=== PATIENT | male | born 1965 | race Caucasian/White ===

== ENCOUNTER 2016-10-21 16:13 | Emergency (ER) | payer BC ==
--- NOTE | ~2016-10-21 | CR21 ---
[facility] A Service of [facility] & [facility] RADIOLOGY TEXT RESULTS PATIENT: ORTEGA PATEL LOCATION: SED : [birth year] UNIT #: [id number] AGE: [address]: Yves Singer SEX: M ORDER DR: [id number] [place] [id number] E MR#: [id number] Acc #: [id number] NAME: ORTEGA PATEL : 1965 SEX: M STUDY DATE/TIME: 10/21/2016 17:39 UNIT: SED ROOM: STUDY DESCRIPTION: CR Ankle Min 3 Views Rt Attending Physician: Yves Singer P.A.-C. Ordering Physician: Yves Singer P.A.-C. Primary Care Physician: Oneal Tiwari M.D. MEDICAL IMAGING REPORT This report is preliminary unless electronic signature is present. EXAM Right ankle 3 views HISTORY Ankle pain and redness and swelling for 2 days. No injury. FINDINGS 3 views of the right ankle demonstrate marked soft tissue swelling about the ankle. No fracture, joint space narrowing or abnormal sclerosis. Small plantar calcaneal spur. IMPRESSION Soft tissue swelling about the ankle. No fracture. Satisfactory bone alignment. Dictated by... Rosendo Roberts M.D. THIS IS AN ELECTRONICALLY VERIFIED REPORT Rosendo Roberts M.D. at 10/21/2016 11:14 PM DFL/to TD: 10/21/2016 22:20 JOB #: [id number] MEDICAL IMAGING REPORT Page 1 of 1
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
--- NOTE | ~2016-10-21 | CR127 ---
[facility]. [facility] A Service of [facility] & [facility] RADIOLOGY TEXT RESULTS PATIENT: ORTEGA PATEL LOCATION: SED : [birth year] UNIT #: [id number] AGE: [address]: Yves Singer SEX: M ORDER DR: [id number] [place] [id number] E MR#: [id number] Acc #: [id number] NAME: ORTEGA PATEL : 1965 SEX: M STUDY DATE/TIME: 10/21/2016 17:39 UNIT: SED ROOM: STUDY DESCRIPTION: CR Foot Complete Min 3 View Rt Attending Physician: Yves Singer P.A.-C. Ordering Physician: Yves Singer P.A.-C. Primary Care Physician: Oneal Tiwari M.D. MEDICAL IMAGING REPORT This report is preliminary unless electronic signature is present. EXAM Right foot, 3 views HISTORY Foot pain for 2 days. Redness and swelling. No injury. FINDINGS 3 views of the right foot demonstrate moderately severe soft tissue swelling over the dorsum of the foot and about the ankle. Bone alignment is normal. No fracture or joint space narrowing or dislocation. No bony destruction. Small plantar calcaneal spur. IMPRESSION 1. Soft tissue swelling over the dorsum of the foot and about the ankle. 2. No fracture. Satisfactory bone alignment. Dictated by... Rosendo Roberts M.D. THIS IS AN ELECTRONICALLY VERIFIED REPORT Rosendo Roberts M.D. at 10/21/2016 11:14 PM DFL/gary TD: 10/21/2016 22:32 JOB #: [id number] MEDICAL IMAGING REPORT Page 1 of 1
[~2016-10-21 16:13] MED LIST: ALTACE PO; AMBIEN PO; AZOR 5-20 MG T1 EACH PO; B/P MED; BAYER ASPIRIN325 M1 PO; FLOMAX0.4 MG PO; HYDROCODON-ACE1 EAC4 PO; LORTAB 10-5001 EACH PO; LOTREL; LOTREL 5-20 MG1 CAP PO; MEDROL PO; OXYCONTIN15 MG PO; PERCOCET10 PO; TYLOX 5-500 CA1 EACH PO; TYLOX 5/500 CAP1 CAP PO; TYLOX1 CAP 5/50 PO
[2016-10-21] MEDS ORDERED: BYSTOLIC20 MG PO (16:19)
[2016-10-21 17:11] LABS: BASOPHIL% 0.5 % (0-2.5); EOSINOPHIL# 0.1 X10e3 (0-0.7); EOSINOPHIL% 0.8 % (0.0-7.0); HEMATOCRIT 42.9 % (38.0-50.0); HEMOGLOBIN 14.7 gm/dL (13.0-16.0); LYMPHOCYTE# 0.8 X10e3 (1.0-3.5); LYMPHOCYTE% 9.4 % (17.0-45.0); MEAN CELL VOLUME 84.8 FL (83-96); MEAN CORPUSCULAR HGB CONC 34.2 g/dL (30-36); MEAN PLATELET VOLUME 9.8 FL (6.5-11.5); MONOCYTE# 0.8 X10e3 (0-1.0); MONOCYTE% 9.1 % (3.0-12.0); NEUTROPHIL# 6.6 X10e3 (1.5-7.1); NEUTROPHIL% 80.2 % (40-75); PLATELET COUNT 169 X10e3 (140-420); RED BLOOD COUNT 5.05 X10e (3.90-5.60); RED CELL DISTRIBUTION WIDTH 14.9 % (11.0-15.5); WHITE BLOOD COUNT 8.2 X10e3 (4.0-10.5)
[2016-10-21 17:12] LABS: DIFF IND NO
[2016-10-21 17:29] LABS: ALBUMIN SERUM 3.7 g/dL (3.5-5.0); BILIRUBIN, DIRECT 0.2 mg/dL (0.0-0.2); BILIRUBIN,INDIRECT 0.8 mg/dL (0.0-0.9); BUN/CREATININE RATIO 23.57; CALCIUM SERUM 8.5 mg/dL (8.4-10.2); CREATININE SERUM 1.4 mg/dL (0.6-1.4); GLOM FILT RATE Estimated 58.2 mL/min (>60); POTASSIUM 3.9 mmol/L (3.5-5.1); PROTEIN TOTAL SERUM 7.8 g/dL (6.0-8.3); URIC ACID 7.6 mg/dL (2.6-7.2)
== END 2016-10-21 19:26 | disposition home or self-care (01) ==
LOC: SED 16:13
PROVIDERS: Physician Assistant
DX: L03.115 Cellulitis of right lower limb (principal); X50.1XXA Overexertion from prolonged static or awkward postures, initial encounter; Y92.009 Unspecified place in unspecified non-institutional (private) residence as the place of occurrence of the external cause
CPT/HCPCS: 36415; 73610; 73630; 80048; 80076; 84550; 85025; 93971; 99284

== ENCOUNTER 2017-02-15 13:19 | Emergency (ER) | payer BC ==
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
[~2017-02-15 13:19] MED LIST changes: +BYSTOLIC20 MG PO
[2017-02-15] MEDS ORDERED: ELIQUIS5 MG PO (13:21)
[2017-02-15] MEDS ORDERED: RESTORIL15 MG PO (13:21)
[2017-02-15] MEDS ORDERED: AMLODIPINE BESY10 MG PO (13:22)
[2017-02-15] MEDS ORDERED: ANTIBIOTIC (13:22)
== END 2017-02-15 15:37 | disposition home or self-care (01) ==
LOC: SED 13:19
DX: S16.1XXA Strain of muscle, fascia and tendon at neck level, initial encounter (principal); I10 Essential (primary) hypertension; F17.200 Nicotine dependence, unspecified, uncomplicated; Z79.82 Long term (current) use of aspirin; Z79.899 Other long term (current) drug therapy; V49.40XA Driver injured in collision with unspecified motor vehicles in traffic accident, initial encounter; Y92.410 Unspecified street and highway as the place of occurrence of the external cause
CPT/HCPCS: 72040; 96372; 99284; J1885